=== PATIENT | male | born 1965 | race Hispanic/Latino ===

== ENCOUNTER 2019-01-04 21:03 | Emergency (ER) | payer MEDICARE ==
[2019-01-04] MEDS ORDERED: Ondansetron ODT 4 MG TAB ONE ×2 (21:09→21:44)
[2019-01-04] MEDS ORDERED: Promethazine HCl 25 MG/ML VIAL ONE (21:23)
[2019-01-04 21:33] LABS: #Lymphocytes 0.8 thou/uL (1.20-3.40); #Monocytes 0.2 thou/uL (0.11-0.59); #Neutrophils 8.2 thou/uL (1.40-6.50); %Basophils 0.5 % (0.0-1.0); %Eosinophils 0.1 % (0.0-10.0); %Lymphocytes 8.2 % (21.0-51.0); %Monocytes 2.2 % (0.0-10.0); Hemoglobin 12.5 g/dL (14.0-18.0); Mean Corpuscular HGB CONC 32.2 g/dL (32.0-36.0); Mean Corpuscular Hemoglobin 28.4 pg (27.0-31.0); Mean Corpuscular Volume 88.3 fL (78.0-98.0); Mean Platelet Volume 10.5 fL (7.4-10.4); Platelet Count 122 thou/uL (130-400); RBC Distribution Width 12.2 % (11.5-14.5); White Blood Cell (WBC) Count 9.2 thou/uL (4.8-10.8)
[2019-01-04 21:42] LABS: Anion Gap 18 mmol/L (10-20); BUN (Urea Nitrogen) 65 mg/dL (8.4-25.7); Calc. Creatinine Clearance 0 mL/min (70-130); Calcium 8.9 mg/dL (7.8-10.44); Carbon Dioxide 18 mmol/L (22-29); Chloride 105 mmol/L (98-107); Estimated GFR-MDRD 17; Glucose 285 mg/dL (70-105); Potassium 3.5 mmol/L (3.5-5.1); Sodium 137 mmol/L (136-145)
== END 2019-01-04 22:15 | disposition home or self-care (01) ==
LOC: NAV ERS 21:03
DX: R11.2 Nausea with vomiting, unspecified (principal); I12.9 Hypertensive chronic kidney disease with stage 1 through stage 4 chronic kidney disease, or unspecified chronic kidney disease; N18.9 Chronic kidney disease, unspecified; E03.9 Hypothyroidism, unspecified; Z79.84 Long term (current) use of oral hypoglycemic drugs; Z79.899 Other long term (current) drug therapy; Z79.82 Long term (current) use of aspirin
CPT/HCPCS: 36415; 80048; 85025; 96365; J2550; Q0162

== ENCOUNTER 2020-09-25 08:39 | Emergency (ER) | payer MEDICARE ==
[2020-09-25] MEDS ORDERED: Ondansetron ODT 4 MG TAB ONE (08:47)
[2020-09-25] MEDS ORDERED: Sodium Chloride 0.9% 500 ML ONE (09:04)
[2020-09-25] MEDS ORDERED: Promethazine HCl 25 MG/ML VIAL ONE (09:05)
[2020-09-25] MEDS ORDERED: Morphine 4 MG/ML VIAL ONE (09:05)
[2020-09-25 09:33] LABS: ALT (SGPT) 26 U/L (8-55); AST (SGOT) 40 U/L (5-34); Albumin 4.1 g/dL (3.5-5.0); Alkaline Phosphatase 78 U/L (40-110); Anion Gap 23 mmol/L (10-20); BUN (Urea Nitrogen) 59 mg/dL (8.4-25.7); Bilirubin, Total 0.7 mg/dL (0.2-1.2); Calc. Creatinine Clearance 0 mL/min (70-130); Calcium 9.3 mg/dL (7.8-10.44); Carbon Dioxide 21 mmol/L (22-29); Chloride 97 mmol/L (98-107); Glucose 138 mg/dL (70-105); Lipase 130 U/L (8-78); Potassium 4.1 mmol/L (3.5-5.1); Protein, Total 7.1 g/dL (6.0-8.3); Sodium 137 mmol/L (136-145)
[2020-09-25 09:53] LABS: #Eosinphils 0.1 thou/uL (0.0-0.7); #Lymphocytes 0.9 thou/uL (1.20-3.40); #Monocytes 0.4 thou/uL (0.11-0.59); #Neutrophils 4.9 thou/uL (1.40-6.50); %Basophils 0.7 % (0.0-1.0); %Eosinophils 2.2 % (0.0-10.0); %Lymphocytes 14.2 % (21.0-51.0); %Monocytes 5.7 % (0.0-10.0); %Neutrophils 77.2 % (42.0-75.0); Hemoglobin 11.7 g/dL (14.0-18.0); MDiff Complete? YES; Mean Corpuscular HGB CONC 32.7 g/dL (32.0-36.0); Mean Corpuscular Hemoglobin 32.6 pg (27.0-31.0); Mean Corpuscular Volume 99.8 fL (78.0-98.0); Mean Platelet Volume 9.2 fL (7.4-10.4); Platelet Morphology Comment PLT clumps seen-ADEQ; Poikilocytosis SLIGHT = 6-15 cells (100X) (0-5/hpf); RBC Distribution Width 13.9 % (11.5-14.5); Red Blood Cell (RBC) Count 3.58 mill/uL (4.70-6.10); White Blood Cell (WBC) Count 6.3 thou/uL (4.8-10.8)
--- NOTE | 2020-09-25 09:58 | RAD ---
Exam: Chest one view HISTORY:Pain Comparison: 03/27/2020 FINDINGS: Cardiac silhouette: Cardiomegaly. Stable sternotomy wires. Aorta: Unremarkable Pulmonary vessels: Normal Costophrenic angles: Clear Mediastinum: Calcified AP window lymph node LUNGS: No masses or consolidation. Chronic lung parenchymal changes. Pneumothorax: None Osseous abnormalities: None IMPRESSION: Cardiomegaly, without evidence of congestive heart failure.
[2020-09-25] MEDS ORDERED: Ondansetron PF 4 MG/2 ML Vial ONE (10:02)
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
[2020-09-25 10:07] LABS: Bilirubin Negative (Negative); Blood, Urine Small (Negative); Clarity Clear (Clear); Glucose, Urine (Dipstick) 100 mg/dL (Negative); Ketone, Urine Trace mg/dL (Negative); Leukocyte Negative (Negative); Nitrite Negative (Negative); Protein, Urine (Dipstick) > or equal to 300 mg/dL (Neg-Trace); Urobilinogen 0.2 mg/dL (Less than 2)
[2020-09-25 10:08] LABS: CKMB 9.8 ng/mL (0-6.6)
[2020-09-25 10:12] LABS: Bacteria/HPF None Seen HPF (None Seen); RBC/HPF 0-3 HPF (0-3); Squamous Epithelial 0-3 HPF (0-3); WBC/HPF None Seen HPF (0-3)
[2020-09-25] MEDS ORDERED: Promethazine 25 MG TAB ONE (10:33)
== END 2020-09-25 11:06 | disposition home or self-care (01) ==
LOC: NAV ERS 08:39
DX: K86.1 Other chronic pancreatitis (principal); R11.2 Nausea with vomiting, unspecified; R77.8 Other specified abnormalities of plasma proteins; E11.22 Type 2 diabetes mellitus with diabetic chronic kidney disease; I12.0 Hypertensive chronic kidney disease with stage 5 chronic kidney disease or end stage renal disease; N18.6 End stage renal disease; E03.9 Hypothyroidism, unspecified; G47.30 Sleep apnea, unspecified; Z79.82 Long term (current) use of aspirin; Z79.899 Other long term (current) drug therapy
CPT/HCPCS: 36416; 71045; 74176; 80053; 81003; 81015; 82553; 83690; 83735; 84484; 85025; 93005; 94760; 96365; 96375; J2270; J2405; J2550; J7030; Q0162; Q0169

== ENCOUNTER 2022-11-13 13:41 | Emergency (ER) | payer OTHER ==
[2022-11-13] MEDS ORDERED: Ipratropium/Albuterol 3 ML NEB ONE ×3 (14:24→17:27)
[2022-11-13] MEDS ORDERED: methylPREDNISolone Sod Succ/PF 125 MG/2 ML VIAL ONE (14:24)
[2022-11-13] MEDS ORDERED: Lorazepam 2 MG/ML VIAL ONE (14:24)
[2022-11-13 14:56] LABS: #Basophils 0.1 thou/uL (0.0-0.2); #Eosinphils 0.1 thou/uL (0.0-0.7); #Lymphocytes 0.6 thou/uL (1.20-3.40); #Monocytes 0.6 thou/uL (0.11-0.59); #Neutrophils 6.5 thou/uL (1.40-6.50); %Basophils 0.7 % (0.0-1.0); %Eosinophils 1.1 % (0.0-10.0); %Lymphocytes 7.5 % (21.0-51.0); %Monocytes 7.9 % (0.0-10.0); %Neutrophils 82.8 % (42.0-75.0); Hemoglobin 8.3 g/dL (14.0-18.0); Mean Corpuscular HGB CONC 31.2 g/dL (32.0-36.0); Mean Corpuscular Hemoglobin 33.2 pg (27.0-31.0); Mean Platelet Volume 12.3 fL (7.4-10.4); Platelet Count 114 10x3/uL (130-400); RBC Distribution Width 14.2 % (11.5-14.5); Red Blood Cell (RBC) Count 2.48 mill/uL (4.70-6.10); White Blood Cell (WBC) Count 7.8 10x3/uL (4.8-10.8)
[2022-11-13 15:00] LABS: Base Excess-Venous 7.5 mmol/L (-2.0 to 3.0); CO2 Tension (PvCO2) 32.9 mmHg (42.0-51.0); Calcium, Ionized 0.99 mmol/L (1.15-1.33); Chloride 97 mmol/L (98-107); Hemoglobin - Calc 8.5 g/dL (14.0-18.0); Potassium 3.1 mmol/L (3.5-5.1); Sodium 138 mmol/L (138-145); vO2 Saturation-calc 87.8 % (60.0-85.0)
[2022-11-13 15:02] LABS: CKMB 2.5 ng/mL (0-6.6)
[2022-11-13 15:13] LABS: ALT (SGPT) 68 U/L (8-55); AST (SGOT) 25 U/L (5-34); Albumin 3.5 g/dL (3.5-5.0); Alkaline Phosphatase 169 U/L (40-110); Anion Gap 15 mmol/L (10-20); BUN (Urea Nitrogen) 17 mg/dL (8.4-25.7); Bilirubin, Total 0.8 mg/dL (0.2-1.2); Calc. Creatinine Clearance 0 mL/min (70-130); Calcium 8.7 mg/dL (7.8-10.44); Carbon Dioxide 29 mmol/L (22-29); Chloride 97 mmol/L (98-107); Estimated GFR 23; Glucose 257 mg/dL (70-105); Potassium 3.2 mmol/L (3.5-5.1); Protein, Total 6.5 g/dL (6.0-8.3); Sodium 138 mmol/L (136-145)
[2022-11-13 16:06] LABS: SARS-CoV-2 NAA Rapid Test Not Detected (NotDetected)
[2022-11-13 17:16] LABS: Lactic Acid 0.7 mmol/L (0.5-2.2)
[2022-11-13 17:19] LABS: Base Excess-Venous 8.1 mmol/L (-2.0 to 3.0); Bicarbonate (HCO3v) 31.1 mmol/L (22.0-28.0); CO2 Tension (PvCO2) 35.5 mmHg (42.0-51.0); Calcium, Ionized 0.99 mmol/L (1.15-1.33); Chloride 96 mmol/L (98-107); Hemoglobin - Calc 8.1 g/dL (14.0-18.0); Potassium 3.2 mmol/L (3.5-5.1); Sodium 137 mmol/L (138-145); T. Carbon Dioxide 32.1 mmol/L (22.0-28.0)
== END 2022-11-13 18:37 | disposition short-term general hospital (02) ==
LOC: NAV ERS 13:41
DX: J20.9 Acute bronchitis, unspecified (principal); F41.9 Anxiety disorder, unspecified; R79.1 Abnormal coagulation profile; F45.8 Other somatoform disorders; R09.02 Hypoxemia; R06.2 Wheezing; I12.0 Hypertensive chronic kidney disease with stage 5 chronic kidney disease or end stage renal disease; E11.22 Type 2 diabetes mellitus with diabetic chronic kidney disease; N18.6 End stage renal disease; E78.00 Pure hypercholesterolemia, unspecified; I25.10 Atherosclerotic heart disease of native coronary artery without angina pectoris; Z20.822 Contact with and (suspected) exposure to COVID-19; Z99.2 Dependence on renal dialysis; Z79.4 Long term (current) use of insulin; Z79.82 Long term (current) use of aspirin; Z79.899 Other long term (current) drug therapy
CPT/HCPCS: 36416; 71045; 80053; 82330; 82553; 82803; 83605; 83880; 84484; 85025; 85379; 87070; 87205; 93005; 94640; 94760; 96374; 96375; J2060; J2930; J7620